=== PATIENT | female | born 1995 | race Caucasian/White ===

== ENCOUNTER 2018-05-10 12:37 | Inpatient (IN) | payer MEDICAID, OTHER ==
--- NOTE | 2018-05-10 15:29 | RAD ---
Indication: Past dates limited due date May 07, 2018. Estimated weight. Comparison: No relevant prior exams available on the [facility] for comparison. Technique: Transabdominal obstetrical ultrasound. REPORT: Single intrauterine fetus is in cephalic presentation. Spontaneous motion and cardiac activity present. heart rate: 115 bpm. The volume of amniotic fluid is qualitatively normal. Amniotic fluid index is equal to 10.86. The cervical length is 5.0 cm however early gestational age and vertex presentation limits conspicuity of the cervix. Anterior. Negative for placenta previa. Mean BPD: 9.51 corresponding to 38 weeks 6 days Mean HC: 34.6 cm corresponding to 40 weeks 1 day Mean AC: 38.6 cm Mean FL: 8.1 cm corresponding to 41 weeks 5 days Composite gestational age: 40 weeks 2 days HC / AC ratio:0.9 weight: 4415 g. +/- 645 g. Acoustic window for assessment of the four-chamber heart view is limited. Report: Adkins intrauterine gestation as described with estimated weight of 4415 g +/- 645 g and estimated gestational age based on this exam of 40 weeks 2 days.
[2018-05-10 15:36] LABS: ABS Basophils 0.1 10^3/ul (0-0.2); ABS Eosinophils 0.1 10^3/ul (0-0.6); ABS Lymphocytes 2.6 10^3/ul (1.0-4.8); ABS Monocytes 0.8 10^3/ul (0-0.8); ABS Nucleated RBC 0 10^3/ul; Eosinophil % 0.5 % (0-6); Hematocrit 37 % (35-47); Hemoglobin 12.3 g/dl (12.0-16.0); Mean Corpuscular HGB Conc 34 g/dl (31-36); Mean Corpuscular Hemoglobin 27 pg (27-31); Mean Corpuscular Volume 78 fL (80-97); Mean Platelet Volume 9.1 um3 (7.4-10.4); Nucleated Red Blood Cells % 0.1; Platelet Count 158 10^3/ul (150-450); Red Blood Count 4.66 10^6/ul (4.00-5.40); Red Cell Distribution Width 14 % (10.5-15); White Blood Count 12.6 10^3/ul (3.5-10.8)
[2018-05-10] MEDS ORDERED: Clindamycin 900 MG IVPREMIX(* 900 MG/50 ML SDV IV ONE (16:16)
--- NOTE | 2018-05-10 16:18 | RAD ---
Indication: Evaluate for lumbar spine congenital deformity. CT of the lumbar spine was obtained in the axial plane. Sagittal and coronal reconstructed images were obtained. The vertebral bodies appear normal in height and alignment. No compression fracture is noted. Facet joints are grossly unremarkable. Alignment appears grossly unremarkable. No definite evidence of scoliosis is noted. No evidence of spondylolisthesis is noted. No facet arthropathy is noted. Sacroiliac joints are grossly unremarkable. The sacrum is grossly unremarkable. Sacroiliac joints are unremarkable. IMPRESSION: Unremarkable lumbar spine CT.
[2018-05-10] MEDS ORDERED: Phenylephrine INJ* 10 MG/ML 1 ML VIAL (10 MG) ONE (16:50)
[2018-05-10] MEDS ORDERED: Bupivacaine-MPF SPINAL* 7.5 MG/ML - 2ML AMP ONE ×2 (16:50→18:57)
[2018-05-10] MEDS ORDERED: fentaNYL* 50 MCG/ML 2 ML VIAL (100 MCG VIAL) ONE (16:50)
[2018-05-10] MEDS ORDERED: Morphine PF AMP (0.5MG/ML)* 5 MG/10 ML AMP ONE (16:50)
[2018-05-10] MEDS ORDERED: Lidocaine 2% PF* 10 ML AMP ONE (16:51)
[2018-05-10] MEDS ORDERED: Ondansetron INJ* 2 MG/ML VIAL ONE (16:59)
[2018-05-10] MEDS ORDERED: GENTAMICIN ADULT IVPB ONE (17:00)
[2018-05-10] MEDS ORDERED: Gentamicin ADULT (*) 80 MG in NS 0.9% 100 ML* 100 ML IVPB ONE (17:00)
[2018-05-10] MEDS ORDERED: NS 0.9% IVPB ONE (17:00)
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
[2018-05-10] MEDS ORDERED: Clindamycin 900 MG/D5W BAG(*) 900 MG/50 ML BAG IVPB ONE (17:31)
[2018-05-10] MEDS ORDERED: Famotidine IV* 10 MG/ML 2 ML (20 mg) ONE (17:31)
[2018-05-10] MEDS ORDERED: Sodium Citrate/Citric Acid* 15 ML UDC ONE (17:32)
[2018-05-10] MEDS ORDERED: Metoclopramide IV* 5 MG/ML 2 ML VIAL ONE (19:06)
[2018-05-10] MEDS ORDERED: OXYTOCIN* 10 UNITS/ML 1 ML VIAL ONE (19:45)
[2018-05-10] MEDS ORDERED: oxyCODONE TAB* 5 MG TAB PO PRN (19:49)
[2018-05-10] MEDS ORDERED: Naloxone* 0.4 MG/ML 1 ML VIAL IV PRN (19:49)
[2018-05-10] MEDS ORDERED: Acetaminophen TAB* 325 MG PO PRN ×2 (19:49→21:49)
[2018-05-10] MEDS ORDERED: Metoclopramide IV* 5 MG/ML 2 ML VIAL IV PRN (19:49)
[2018-05-10] MEDS ORDERED: oxyCODONE/Acetamin 5/325 MG* TAB PO PRN (19:49)
[2018-05-10] MEDS ORDERED: Ondansetron INJ* 2 MG/ML VIAL IV PRN (19:49)
[2018-05-10] MEDS ORDERED: diPHENhydraMINE IV* 50 MG/ML 1 ml VIAL (BENADRYL) IV PRN (19:49)
[2018-05-10] MEDS ORDERED: Ketorolac INJ* 30 MG/ML 1 ML VIAL ONE (20:04)
[2018-05-10] MEDS ORDERED: Witch Hazel PAD* JAR TOPICAL PRN (21:49)
[2018-05-10] MEDS ORDERED: Glycerin ADULT SUPP PR PRN (21:49)
[2018-05-11] MEDS: Ketorolac INJ* 30 MG/ML 1 ML VIAL IV PRN ×2 (02:52→11:39)
[2018-05-11 06:53] LABS: ABS Basophils 0 10^3/ul (0-0.2); ABS Eosinophils 0.1 10^3/ul (0-0.6); ABS Monocytes 0.9 10^3/ul (0-0.8); ABS Neutrophils 7.8 10^3/ul (1.5-7.7); ABS Nucleated RBC 0 10^3/ul; Eosinophil % 0.8 % (0-6); Hematocrit 27 % (35-47); Lymphocyte % 18.8 % (25-47); Mean Corpuscular HGB Conc 33 g/dl (31-36); Mean Corpuscular Hemoglobin 27 pg (27-31); Mean Corpuscular Volume 80 fL (80-97); Mean Platelet Volume 9.3 um3 (7.4-10.4); Nucleated Red Blood Cells % 0; Platelet Count 126 10^3/ul (150-450); Red Blood Count 3.38 10^6/ul (4.00-5.40); Red Cell Distribution Width 14 % (10.5-15); White Blood Count 10.8 10^3/ul (3.5-10.8)
[2018-05-11] MEDS ORDERED: Nicotine PATCH 7 MG/24 HR* PATCH TRANSDERM SCH (08:00)
[2018-05-11] MEDS: Docusate CAP* 100 MG PO SCH ×3 (08:53→19:44)
[2018-05-11] MEDS: Simethicone TAB* 80 MG TAB.CHEW PO SCH ×3 (08:53→19:45)
[2018-05-11] MEDS: Ferrous Gluconate TAB* 324 MG TAB PO SCH ×2 (09:15→19:44)
[2018-05-11] MEDS ORDERED: oxyCODONE/Acetamin 5/325 MG* TAB PO PRN (10:01)
--- NOTE | 2018-05-11 15:21 | OP ---
DATE OF OPERATION: 05/10/18 - ROOM #105 DATE OF : 89 SURGEON: Ade Sanchez MD [employer] LABORER: Brandi Mills CNM PRE-OP DIAGNOSES: Intrauterine gestation at 40 and 3 weeks, macrosomia, desires primary section. POST-OP DIAGNOSES: Intrauterine gestation at 40 and 3 weeks, macrosomia, desires primary section. OPERATIVE PROCEDURE: Primary lower transverse section. ESTIMATED BLOOD LOSS: 1300 mL. FLUIDS: Crystalloid. FINDINGS: Male infant, weight 9 pounds 13 ounces, Apgars of 8 and 9. Normal- appearing uterus, ovaries, and tubes. Normal-appearing placenta. COUNTS: All correct. DRAINS: Clear urine in the Michelle catheter. FLUIDS: Crystalloids. DESCRIPTION OF PROCEDURE: After informed consent was signed, the patient was taken to the operating room where she was given a spinal anesthesia that was found to be adequate. SCDs were placed on her legs and a Michelle catheter was introduced into her bladder. She was prepped and draped in the dorsal supine position with leftward lift. A time-out was performed. A Pfannenstiel skin incision was made with a scalpel and carried down to the underlying layer of fascia. The fascia was incised on either side of the midline with a scalpel and the incision extended laterally with blunt pressure. The inferior edge of the fascial incision was grasped with Rodrick clamps, tented up, and dissected down bluntly. Then, the superior edge of the fascial incision was grasped with Rodrick clamps, tented up, and dissected down bluntly. The rectus muscles were in the midline and the peritoneum was entered bluntly. The peritoneal incision was extended laterally with a combination of sharp and blunt dissection. The bladder blade was inserted and a transverse incision was made in the lower uterine segment with the scalpel. A placental huff was encoutered upon entrance to the uterus causing extra bleeding. The uterine cavity was quickly entered and the incision was extended superiorly and inferiorly with blunt pressure. There was difficulty had with delivering the 's head due to positioning and size of the head. Therefore, the Kiwi suction was applied to the head to assist with delivery. The head was delivered with fundal pressure followed by the shoulders and the rest of the body. The cord was milked towards the baby, then clamped x2 and cut. The baby was handed to the service desk manager. Cord gases were sent and cord blood was collected. The placenta delivered with fundal massage and gentle cord traction. The uterus was exteriorized and cleared of clots and debris. The uterine incision was then closed with 0 Vicryl in a running locked fashion with a second layer of suture imbricating the first. The abdomen was irrigated and the uterus was placed back into the abdominal cavity. Good hemostasis was noted along the length of the uterine incision. The peritoneum was closed with 0 Vicryl in a running unlocked fashion. Good hemostasis was then noted along the muscle layer. The fascia was closed with 0 Vicryl in a running unlocked fashion. The subcuticular layer was closed with 3-0 Vicryl in interrupted sutures and the skin was closed with 4-0 Monocryl in a running subcuticular fashion. Mastisol and Steri-Strips were placed. The patient was cleaned, moved to the stretcher, and taken to the recovery room in stable condition. [id number]/[facility] #: [id number] NESS
[2018-05-11] MEDS ORDERED: Ketorolac INJ* 30 MG/ML 1 ML VIAL IV PRN (15:30)
[2018-05-11] MEDS: oxyCODONE/Acetamin 5/325 MG* TAB PO PRN (16:15)
[2018-05-11] MEDS ORDERED: Nicotine Patch Removal NOTE PATCH OFF SCH (21:00)
[2018-05-11 21:23] LABS: ABS Basophils 0 10^3/ul (0-0.2); ABS Eosinophils 0.1 10^3/ul (0-0.6); ABS Lymphocytes 2.1 10^3/ul (1.0-4.8); ABS Monocytes 0.8 10^3/ul (0-0.8); ABS Neutrophils 6.7 10^3/ul (1.5-7.7); ABS Nucleated RBC 0 10^3/ul; Eosinophil % 0.9 % (0-6); Hematocrit 26 % (35-47); Hemoglobin 8.5 g/dl (12.0-16.0); Lymphocyte % 21.4 % (25-47); Mean Corpuscular HGB Conc 33 g/dl (31-36); Mean Corpuscular Hemoglobin 26 pg (27-31); Mean Corpuscular Volume 80 fL (80-97); Nucleated Red Blood Cells % 0; Platelet Count 139 10^3/ul (150-450); Red Blood Count 3.25 10^6/ul (4.00-5.40); Red Cell Distribution Width 14 % (10.5-15); White Blood Count 9.6 10^3/ul (3.5-10.8)
[2018-05-12] MEDS: oxyCODONE/Acetamin 5/325 MG* TAB PO PRN ×4 (00:52→20:37)
[2018-05-12] MEDS: Ibuprofen TAB* 600 MG PO PRN ×3 (05:02→16:54)
[2018-05-12] MEDS: Simethicone TAB* 80 MG TAB.CHEW PO SCH ×4 (08:41→20:37)
[2018-05-12] MEDS: Ferrous Gluconate TAB* 324 MG TAB PO SCH ×2 (08:41→20:37)
[2018-05-12] MEDS: Docusate CAP* 100 MG PO SCH ×3 (08:41→20:38)
[2018-05-13 01:03] VITALS: BP 122/73
[2018-05-13] MEDS: Ibuprofen TAB* 600 MG PO PRN ×2 (02:06→08:54)
[2018-05-13] MEDS: Ferrous Gluconate TAB* 324 MG TAB PO SCH (08:54)
[2018-05-13] MEDS: Docusate CAP* 100 MG PO SCH (08:54)
[2018-05-13] MEDS: Simethicone TAB* 80 MG TAB.CHEW PO SCH (08:55)
== END 2018-05-13 12:20 | disposition home or self-care (01) | DRG 540 ==
LOC: EEVIPCON → MCHOBOUT 12:37 → MCHOB 14:48
PROVIDERS: ADMIT Obstetrics & Gynecology; ATTEND Obstetrics & Gynecology
PROC: 4A1HXCZ Monitoring of Products of Conception, Cardiac Rate, External Approach (ICD-10-PCS; 2018-05-10)
PROC: 10D00Z1 Extraction of Products of Conception, Low, Open Approach (ICD-10-PCS; principal; 2018-05-10 18:45)
DX: O36.63X0 Maternal care for excessive fetal growth, third trimester, not applicable or unspecified (principal); O99.42 Diseases of the circulatory system complicating childbirth; O48.0 Post-term pregnancy; O99.334 Smoking (tobacco) complicating childbirth; O99.824 Streptococcus B carrier state complicating childbirth; F17.200 Nicotine dependence, unspecified, uncomplicated; Z91.410 Personal history of adult physical and sexual abuse; Z3A.40 40 weeks gestation of pregnancy; Z37.0 Single live birth; Z88.0 Allergy status to penicillin; R00.0 Tachycardia, unspecified; O90.81 Anemia of the puerperium
CPT/HCPCS: 36415; 72131; 76815; 85025; 86850; 86900; 86901; 93005; A9270-GY; J1580; J1885; J2001; J2405; J2590; J2765; J3010

== ENCOUNTER 2022-06-02 05:52 | Inpatient (IN) ==
[2022-06-02] MEDS ORDERED: Buffered Lidocaine 1% SYRIN 1 ml INTRADERM ONE (06:00)
[2022-06-02] MEDS ORDERED: Lactated Ringers 1000 ml BAG 1,000 ML IV SCH ×2 (06:00→12:00)
[2022-06-02 06:38] LABS: ABS Eosinophils 0.1 10^3/ul (0-0.6); ABS Lymphocytes 2.6 10^3/ul (1.0-4.8); ABS Neutrophils 9.1 10^3/ul (1.5-7.7); Eosinophil % 1.1 %; Hematocrit 35 % (35-47); Hemoglobin 11.2 g/dL (12.0-16.0); Mean Corpuscular HGB Conc 32 g/dL (31-36); Mean Corpuscular Hemoglobin 25 pg (27-31); Mean Corpuscular Volume 79 fL (80-97); Mean Platelet Volume 8.5 fL (7.4-10.4); Platelet Count 169 10^3/uL (150-450); Red Blood Count 4.46 10^6 /uL (3.70-4.87); Red Cell Distribution Width 14 % (10-15); White Blood Count 12.9 10^3/uL (3.5-10.8)
[2022-06-02] MEDS ORDERED: fentaNYL 100 mcg/2 ml 50 MCG/ML VIAL ONE (07:34)
[2022-06-02] MEDS ORDERED: Morphine PF AMP (0.5MG/ML) 5 MG/10 ML AMP ONE (07:34)
[2022-06-02] MEDS ORDERED: ceFOXitin 2 GM PREMIX 50 ML IVPB ONE (08:00)
[2022-06-02] MEDS ORDERED: Phenylephrine 40 mcg/mL 10mL (400mcg) SYRINGE ONE ×2 (08:18→08:36)
[2022-06-02] MEDS ORDERED: Oxytocin 10 UNITS/ML 1 ML VIAL ONE ×2 (08:38→09:25)
[2022-06-02] MEDS ORDERED: Metoclopramide 5 MG/ML VIAL (10 mg) IV PRN (09:02)
[2022-06-02] MEDS ORDERED: Acetaminophen IV 1 GM/100ML 1,000 MG/100 ML BAG IV PRN (09:02)
[2022-06-02] MEDS ORDERED: Naloxone 0.4 mg VIAL 0.4 mg/ml 1 ml VIAL IV PUSH PRN (09:02)
[2022-06-02] MEDS ORDERED: Ondansetron 4 mg VIAL 2 MG/ML 2 ml VIAL IV PRN (09:02)
[2022-06-02] MEDS ORDERED: Propofol 10 MG/ML 20 ML BTL ONE (09:18)
[2022-06-02 09:33] LABS: Urine Appearance Clear; Urine Bilirubin Negative (Negative); Urine Blood Negative (Negative); Urine Color Yellow; Urine Glucose Negative (Negative); Urine Ketones Negative (Negative); Urine Nitrite Negative (Negative); Urine Protein Negative (Negative); Urine Specific Gravity 1.009 (1.002-1.030); Urine Urobilinogen Negative (Negative)
[2022-06-02 10:06] LABS: Urine Benzodiazepine Screen None Detected (None Detect); Urine Cannabinoids Screen None Detected (None Detect); Urine Opiates Screen None Detected (None Detect)
[2022-06-02] MEDS ORDERED: Witch Hazel PAD JAR TOPICAL PRN (11:02)
[2022-06-02] MEDS ORDERED: Glycerin ADULT 2.4 gm SUPP PR PRN (11:02)
[2022-06-02] MEDS ORDERED: Oxytocin in LR 20,000 MILLI.UNIT/1,000 ML BAG IV SCH (11:15)
[2022-06-03 07:15] LABS: ABS Eosinophils 0.1 10^3/ul (0-0.6); ABS Lymphocytes 2.1 10^3/ul (1.0-4.8); ABS Monocytes 0.7 10^3/ul (0-0.8); ABS Neutrophils 6.2 10^3/ul (1.5-7.7); Eosinophil % 1.2 %; Hematocrit 28 % (35-47); Hemoglobin 9.1 g/dL (12.0-16.0); Lymphocyte % 23.1 %; Mean Corpuscular HGB Conc 33 g/dL (31-36); Mean Corpuscular Hemoglobin 26 pg (27-31); Mean Corpuscular Volume 78 fL (80-97); Mean Platelet Volume 8.3 fL (7.4-10.4); Platelet Count 125 10^3/uL (150-450); Red Blood Count 3.54 10^6 /uL (3.70-4.87); Red Cell Distribution Width 14 % (10-15); White Blood Count 9.1 10^3/uL (3.5-10.8)
[2022-06-03] MEDS ORDERED: Gelfoam 12-7 ADSORBABL SPONGE ONE (17:45)
[2022-06-04 08:15] VITALS: BP 124/71
[2022-06-04] MEDS ORDERED: Tetan/Diph/Pertus SYR(Tdap) 0.5 ML SYR(BOOSTRIX) use SYR contains LATEX IM ONE (09:30)
== END 2022-06-04 10:46 | disposition home or self-care (01) | DRG 540 ==
LOC: MCHOB 05:52
PROVIDERS: ADMIT Obstetrics & Gynecology; ATTEND Obstetrics & Gynecology